=== PATIENT | male | born 1950 | race Caucasian/White ===

== ENCOUNTER 2018-10-17 13:26 | Emergency (ER) | payer MEDICARE | END 2018-10-17 15:20 | disposition home or self-care (01) | LOC: ERS 13:26 | DX: H53.9 Unspecified visual disturbance (principal); I25.10 Atherosclerotic heart disease of native coronary artery without angina pectoris; Z79.82 Long term (current) use of aspirin | CPT/HCPCS: 99283 ==

== ENCOUNTER 2024-05-26 13:17 | Outpatient (CLI) | payer MEDICARE, OTHER ==
[~2024-05-26 13:17] MED LIST: Magnevist 469MG/ML 20 ML VIAL ONE
== END 2024-05-26 13:18 | disposition home or self-care (01) ==
LOC: MRI 13:17
PROVIDERS: ATTEND Otolaryngology Plastic Surgery within the Head & Neck
DX: H90.3 Sensorineural hearing loss, bilateral (principal); R42 Dizziness and giddiness; I67.89 Other cerebrovascular disease
CPT/HCPCS: 36415; 70553; 76376; 82565; 93880